=== PATIENT | male | born 2000 | race Caucasian/White ===

== ENCOUNTER 2022-07-17 00:16 | Emergency (ER) | payer OTHER ==
[~2022-07-17] VITALS: Ht 160 cm; Wt 98.0 kg
[2022-07-17 00:30] VITALS: BP 151/89
[2022-07-17 00:35] VITALS: BP 151/89
--- NOTE | 2022-07-17 02:15 | NUR ---
Patient taken to bed 9.
--- NOTE | 2022-07-17 02:27 | NUR ---
Dr. Sigala examining patient.
[2022-07-17] MEDS ORDERED: NACL 0.9% 1,000 ML IV ONE (02:35)
[2022-07-17] MEDS ORDERED: KETOROLAC 30 MG/ML VIAL IVP ONE (02:35)
[2022-07-17] MEDS ORDERED: METOCLOPRAMIDE 10 MG/2 ML INJ VIAL IVP ONE (02:35)
[2022-07-17] MEDS ORDERED: diphenhydrAMINE 50 MG/ML VIAL IVP ONE (02:35)
[2022-07-17] MEDS ORDERED: IBUPROFEN 800 MG TAB PO ONE (03:00)
[2022-07-17] MEDS ORDERED: diazePAM 5 MG TAB PO ONE (03:00)
[2022-07-17] MEDS ORDERED: DIAZ5TAB6 PO (03:03)
[2022-07-17] MEDS ORDERED: NAPR-54 PO (03:03)
--- NOTE | 2022-07-17 03:26 | NUR ---
Patient discharged with v/s stable. Written and verbal after care instructions given and explained. Patient verbalized understanding. Ambulatory with steady gait. All questions addressed prior to discharge. Advised to follow up with PMD.
== END 2022-07-17 03:26 | disposition home or self-care (01) ==
LOC: MED 00:16
DX: R51.9 Headache, unspecified (principal)
CPT/HCPCS: 99283

== ENCOUNTER 2022-08-22 11:47 | Emergency (ER) | payer OTHER ==
[~2022-08-22] VITALS: Ht 167.6 cm; Wt 91.2 kg
[~2022-08-22 11:47] MED LIST: ACET-2619 PO; DIAZ5TAB6 PO; DOXY-487 PO; NAPR-54 PO
[2022-08-22 12:13] VITALS: BP 127/73; PULSE 56; RESP 18; TEMP 97.9; O2SAT 98
[2022-08-22] MEDS ORDERED: LORazepam 1 MG TAB PO ONE (12:45)
[2022-08-22] MEDS ORDERED: ONDANSETRON 4 MG ODT PO ONE ×2 (12:45→14:05)
--- NOTE | 2022-08-22 14:06 | NUR ---
NAUSEA PERSIST , AT BS TO REEVAL , NEW ORDER RECEIVED
[2022-08-22] MEDS ORDERED: ONDA-188 PO (15:12)
[2022-08-22] MEDS ORDERED: ATI.5 PO (15:12)
--- NOTE | 2022-08-22 16:03 | NUR ---
The patient's care was reviewed and supervised by SHRUTIH BUTLER RN.
== END 2022-08-22 16:03 | disposition home or self-care (01) ==
LOC: MED 11:47
DX: R42 Dizziness and giddiness (principal); F41.9 Anxiety disorder, unspecified; R51.9 Headache, unspecified; J45.909 Unspecified asthma, uncomplicated; Z79.899 Other long term (current) drug therapy
CPT/HCPCS: 99284; Q0162

== ENCOUNTER 2023-01-05 03:00 | Emergency (ER) | payer OTHER ==
[~2023-01-05] VITALS: Ht 165.1 cm; Wt 90.7 kg
[~2023-01-05 03:00] MED LIST changes: +ATI.5 PO; +ONDA-188 PO
[2023-01-05 03:21] VITALS: BP 131/60; PULSE 84; RESP 17; TEMP 98; O2SAT 97
[2023-01-05 03:54] VITALS: TEMP 98.1
[2023-01-05] MEDS ORDERED: PRED20TA5 PO (04:33)
[2023-01-05] MEDS ORDERED: EPIN1KIT31 IM (04:33)
[2023-01-05] MEDS ORDERED: DIPH25TA53 PO (04:33)
[2023-01-05 04:53] VITALS: BP 123/53; PULSE 55; RESP 14; O2SAT 99
== END 2023-01-05 04:54 | disposition home or self-care (01) ==
LOC: MED 03:00
DX: T78.49XA Other allergy, initial encounter (principal); J45.909 Unspecified asthma, uncomplicated; Z79.899 Other long term (current) drug therapy; Z79.2 Long term (current) use of antibiotics; Z79.1 Long term (current) use of non-steroidal anti-inflammatories (NSAID); Z88.0 Allergy status to penicillin; X58.XXXA Exposure to other specified factors, initial encounter
CPT/HCPCS: 99283

== ENCOUNTER 2023-03-22 20:50 | Emergency (ER) | payer OTHER ==
[~2023-03-22] VITALS: Ht 165.1 cm; Wt 86.2 kg
[~2023-03-22 20:50] MED LIST changes: +DIPH25TA53 PO; +EPIN1KIT31 IM; +PRED20TA5 PO
[2023-03-22 21:00] VITALS: BP 139/71; PULSE 79; RESP 17; TEMP 97.7; O2SAT 98
[2023-03-22 22:18] VITALS: BP 122/70; PULSE 78; RESP 16; TEMP 98; O2SAT 99
== END 2023-03-22 22:18 | disposition home or self-care (01) ==
LOC: MED 20:50
DX: R00.2 Palpitations (principal); R42 Dizziness and giddiness; J45.909 Unspecified asthma, uncomplicated; Z79.899 Other long term (current) drug therapy; Z79.1 Long term (current) use of non-steroidal anti-inflammatories (NSAID); Z88.0 Allergy status to penicillin
CPT/HCPCS: 93005; 99283